=== PATIENT | male | born 1960 | race American Indian/Alaskan Native ===

== ENCOUNTER 2017-09-11 08:48 | Outpatient (CLI) | payer BC ==
--- NOTE | 2017-09-11 09:29 | XRay Report ---
LEFT KNEE RADIOGRAPHS INDICATION: Left knee pain. COMPARISON: None similar at this institution. FINDINGS: AP, lateral, oblique and sunrise views of the left knee demonstrate intact articulation. Mild patellofemoral narrowing possible. Small suprapatellar effusion suspected. CONCLUSION: Findings, as above. Please correlate. Thank you for the opportunity to participate in this patient's care.
== END 2017-09-11 08:49 | disposition home or self-care (01) ==
LOC: SPVIMAG 08:48
PROVIDERS: ATTEND Orthopaedic Surgery
DX: M25.562 Pain in left knee (principal)